=== PATIENT | female | born 1995 | race Caucasian/White ===

== ENCOUNTER 2018-02-25 08:12 | Outpatient (CLI) | payer MEDICAID ==
[2018-02-25 08:37] VITALS: BP 98/55
[2018-02-25 08:55] LABS: BILIRUBIN,URINE NEGATIVE (NEGATIVE); GLUCOSE, URINE (UA) NEGATIVE (NEGATIVE); KETONES,URINE (UA) NEGATIVE (NEGATIVE); LEUKOCYTE ESTERASE, URINE NEGATIVE (NEGATIVE); NITRITE,URINE NEGATIVE (NEGATIVE); OCCULT BLOOD,URINE NEGATIVE (NEGATIVE); PROTEIN,URINE NEGATIVE (NEGATIVE); UROBILINOGEN,URINE 0.2 (NORMAL) E.U./dL (NORMAL)
[2018-02-25 09:04] LABS: BACTERIA,URINE Few /HPF (None Seen); CLARITY,URINE HAZY (CLEAR); RBC,URINE None Seen /HPF (0-5); SQUAMOUS EPITHELIAL CELL,UR FEW Squamous (<= Few)
--- NOTE | 2018-02-25 11:05 | PROVIDER PROGRESS NOTE ---
Subjective - Prog Note Date Prog Note Date: 02/25/18 Prog Note Time: 11:00 - Subjective Subjective: Fernando is a 23-year-old 2 para 1001 woman who receives care at [facility]. We have no records to review but patient states her EDC is 29 June yielding a EDC of 22 weeks and 3 days. She drops in today reporting decreased movement. She reports no loss of fluid or contractions. She has no headaches visual changes or edema to report. She did have a prior loss at 20 weeks due to infection. She states the infection began as bacterial vaginosis and ascended to become chorion amnionitis. The chorio necessitated uterine evacuation with Cytotec. Currently patient has no fevers chills or abdominal pain. She does report a yellowish discharge and asked this to be evaluated. Objective - Vital Signs/Intake & Output Vital Signs: Vital Signs x48h Temp Pulse Resp BP Pulse Ox 02/25/18 08:36 98.2 F 93 16 98/55 L 100 - Lab Results Other Labs: Lab Results x24hrs 02/25/18 Range/Units 08:45 Urine Color YELLOW Urine Clarity HAZY (CLEAR) Urine pH 7.0 (5.0-7.5) PH Ur Specific [place] 1.015 (1.002-1.030) Urine Protein NEGATIVE (NEGATIVE) mg/dL Urine Glucose (UA) NEGATIVE (NEGATIVE) mg/dL Urine Ketones NEGATIVE (NEGATIVE) mg/dL Urine Occult Blood NEGATIVE (NEGATIVE) Urine Nitrite NEGATIVE (NEGATIVE) Urine Bilirubin NEGATIVE (NEGATIVE) Urine Urobilinogen 0.2 (NORMAL) (NORMAL) E.U./dL Ur Leukocyte Esterase NEGATIVE (NEGATIVE) Urine RBC None Seen (0-5) /HPF Urine WBC 0-3 (0-5) /HPF Ur Squamous Epith Cells FEW Squamous (<= Few) Urine Bacteria Few (None Seen) /HPF Urine Culture Comments NOT INDICATED History of Present Illness - History of Present Illness Allergies/Adverse Reactions: Allergies latex Allergy (Mild, Verified 02/25/18 08:35) Rash Physical Exam - Physical Exam General Appearance: WD/WN, no apparent distress Eyes, Ears, Nose, Throat Exam: PERRL/EOMI Gastrointestinal/Abdominal: Normal bowel sounds, Non tender, Soft Pelvic Exam: external exam normal, speculum exam normal, discharge, other ( Uterus appropriate size. Cervix is long patulous and posterior.) Skin Exam: normal color, warm/dry Assessment/Plan - Assessment/Plan Assessment: Patient reports re-reduced movement however tracing and handheld Doppler indicates a normal active fetus. Her discharge is yellow and non-foul with GC/chlamydia and affirm cultures pending.Cervical exam and ultrasound cervical length indicate low risk of delivery. Plan: Patient is moving to [facility] and wishes to transfer care. She is welcome to start care at the [facility] [place]. Await culture results.Patient is discharged home with warning sign and callback instructions.
--- NOTE | 2018-02-25 11:49 | Ultrasound Report ---
EXAM: LIMITED SECOND TRIMESTER OB EXAM DATE: 02/25/2018 11:17 AM. CLINICAL HISTORY: Decreased movement. COMPARISON: None. TECHNIQUE: Transabdominal ultrasound scanning with selected static images acquired. Examination tailo red for assessment of amniotic fluid volume and cervix length. FINDINGS: Single live intrauterine gestation. heart rate: 142 bpm. Presentation: Breech. Placenta: Posterior position with no previa. Amniotic fluid volume: Subjectively normal. ROSA 16.6 cm. Maximum vertical pocket 5.4 cm. anatomy: Anatomic survey not performed. No abnormalities noted. Cervix: Closed measuring 4.5 cm in length, measured transabdominally. Maternal structures: Otherwise unremarkable. IMPRESSION: 1. Single live IUP in breech presentation. 2. Cervix closed measuring 4.5 cm in length. Normal amniotic fluid volume with ROSA 16.6 cm. 3. Limited OB examination otherwise as above. DYLON Referring Provider Line: [phone] SITE ID: [id number]
== END 2018-02-25 11:20 | disposition home or self-care (01) ==
LOC: WFO 08:12 → FBP 08:16 → WFO 11:20
PROVIDERS: ATTEND Obstetrics & Gynecology
DX: O36.8120 Decreased fetal movements, second trimester, not applicable or unspecified (principal); Z3A.22 22 weeks gestation of pregnancy; O99.89 Other specified diseases and conditions complicating pregnancy, childbirth and the puerperium; N89.8 Other specified noninflammatory disorders of vagina
CPT/HCPCS: 76815; 81001; 87086; 87480; 87491; 87510; 87591; 87660; 99213

== ENCOUNTER 2018-03-20 07:28 | Emergency (ER) | payer MEDICAID ==
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
[2018-03-20 09:00] VITALS: BP 111/59
== END 2018-03-20 08:59 | disposition home or self-care (01) ==
LOC: ED 07:28
DX: O9A.212 Injury, poisoning and certain other consequences of external causes complicating pregnancy, second trimester (principal); S20.211A Contusion of right front wall of thorax, initial encounter; Z3A.26 26 weeks gestation of pregnancy; V43.52XA Car driver injured in collision with other type car in traffic accident, initial encounter
CPT/HCPCS: 81599; 83033; 85025; 86850; 86900; 86901; 96372; 99213; 99283

== ENCOUNTER 2018-03-20 08:40 | Outpatient (CLI) | payer MEDICAID, OTHER ==
[2018-03-20 09:19] VITALS: BP 94/50
[2018-03-20 09:38] LABS: BASOPHILS # (AUTO) 0.1 10^3/uL (0.0-0.1); BASOPHILS % (AUTO) 0.9 %; EOSINOPHILS # (AUTO) 0.2 10^3/uL (0.0-0.7); EOSINOPHILS % (AUTO) 1.5 %; HGB - HEMOGLOBIN 11.8 g/dL (12.0-16.0); MEAN CORPUSCULAR HEMOGLOBIN 31.9 pg (27.0-31.0); MEAN CORPUSCULAR HGB CONC 34.4 g/dL (32.0-36.0); MEAN CORPUSCULAR VOLUME 92.5 fL (81.0-99.0); MEAN PLATELET VOLUME 8.2 fL (7.9-10.8); MONOCYTES # (AUTO) 0.5 10^3/uL (0.0-1.0); MONOCYTES % (AUTO) 4.9 %; NEUTROPHILS # (AUTO) 8.4 10^3/uL (1.5-6.6); NEUTROPHILS % (AUTO) 74.7 %; PLT - PLATELET COUNT 219 10^3/uL (130-450); RED BLOOD COUNT 3.69 10^6/uL (4.20-5.40); RED CELL DISTRIBUTION WIDTH 13.3 % (12.0-15.0); WHITE BLOOD COUNT 11.2 x10^3/uL (4.8-10.8)
[2018-03-20] MEDS ORDERED: RHO(D) IMMUNE GLOBULIN 300 MCG SYRINGE IM ONE (11:25)
== END 2018-03-20 11:50 | disposition home or self-care (01) ==
LOC: WFO 08:40 → FBP 08:56 → WFO 11:50
PROVIDERS: ATTEND Obstetrics & Gynecology
DX: Z04.1 Encounter for examination and observation following transport accident (principal)
CPT/HCPCS: 81599; 83033; 85025; 86850; 86900; 86901; 96372; 99213

== ENCOUNTER 2018-04-01 11:55 | Outpatient (CLI) | payer OTHER, MEDICAID ==
[2018-04-01 12:34] LABS: BASOPHILS # (AUTO) 0.1 10^3/uL (0.0-0.1); BASOPHILS % (AUTO) 0.6 %; EOSINOPHILS # (AUTO) 0.1 10^3/uL (0.0-0.7); EOSINOPHILS % (AUTO) 1.1 %; LYMPHOCYTES % (AUTO) 19.3 %; MEAN CORPUSCULAR HEMOGLOBIN 32.1 pg (27.0-31.0); MEAN CORPUSCULAR HGB CONC 34.7 g/dL (32.0-36.0); MEAN CORPUSCULAR VOLUME 92.4 fL (81.0-99.0); MEAN PLATELET VOLUME 8.4 fL (7.9-10.8); MONOCYTES # (AUTO) 0.4 10^3/uL (0.0-1.0); MONOCYTES % (AUTO) 4.3 %; NEUTROPHILS # (AUTO) 7.7 10^3/uL (1.5-6.6); NEUTROPHILS % (AUTO) 74.7 %; PLT - PLATELET COUNT 224 10^3/uL (130-450); RED BLOOD COUNT 3.73 10^6/uL (4.20-5.40); RED CELL DISTRIBUTION WIDTH 13.5 % (12.0-15.0); WHITE BLOOD COUNT 10.3 x10^3/uL (4.8-10.8)
[2018-04-01 13:17] LABS: BILIRUBIN,URINE NEGATIVE (NEGATIVE); CLARITY,URINE CLEAR (CLEAR); GLUCOSE, URINE (UA) NEGATIVE (NEGATIVE); KETONES,URINE (UA) NEGATIVE (NEGATIVE); LEUKOCYTE ESTERASE, URINE NEGATIVE (NEGATIVE); NITRITE,URINE NEGATIVE (NEGATIVE); OCCULT BLOOD,URINE NEGATIVE (NEGATIVE); PH,URINE 6.5 PH (5.0-7.5); PROTEIN,URINE NEGATIVE (NEGATIVE); UROBILINOGEN,URINE 0.2 (NORMAL) E.U./dL (NORMAL)
[2018-04-01 13:26] LABS: BACTERIA,URINE Few /HPF (None Seen); MUCUS,URINE Few Strands; RBC,URINE 0-5 /HPF (0-5); SQUAMOUS EPITHELIAL CELL,UR MANY Squamous (<= Few)
[2018-04-02 11:11] LABS: HEPATITIS B SURFACE ANTIGEN NON-REACTIVE (NON-REACTIVE)
[2018-04-02 14:21] LABS: HIV AG/AB 4TH GEN NON-REACTIVE (NON-REACTIVE)
== END 2018-04-01 11:56 | disposition home or self-care (01) ==
LOC: LAB 11:55
PROVIDERS: ATTEND Obstetrics & Gynecology
DX: Z36.9 Encounter for antenatal screening, unspecified (principal); Z34.90 Encounter for supervision of normal pregnancy, unspecified, unspecified trimester
CPT/HCPCS: 36415; 81001; 81599; 82950; 85025; 86592; 86762; 86850; 86870; 86900; 86901; 87340; 87389

== ENCOUNTER 2018-04-18 19:09 | Outpatient (CLI) | payer MEDICAID ==
--- NOTE | 2018-04-19 10:23 | Ultrasound Report ---
Procedure Date: 04/18/2018 Accession Number: [id number] / [id number] Procedure: US - Retroperitoneal CPT Code: FULL RESULT: EXAM: Retroperitoneal DATE: 04/18/2018 9:20 PM CLINICAL HISTORY: ALLERGIC PURPURA COMPARISON: None. TECHNIQUE: Real-time scanning was performed with static images obtained. FINDINGS: A single image labeled fetus A is submitted with the retroperitoneal examination which partially visualizes what appears to be a chest demonstrating a heartbeat of 146 bpm. Right Kidney: 10.9 x 5.6 x 6.7 cm. Normal echotexture with no stones, contour-deforming masses, or hydronephrosis. Parenchymal flow is preserved by limited color Doppler. Left Kidney: 11.4 x 5.1 x 5.5 cm. Parenchymal flow is preserved by limited color Doppler. Normal echotexture with no stones, contour-deforming masses, or hydronephrosis.] Bladder: The right ureteral jet is identified, the left jet is not seen. The bladder measures 4 x 4 0.7 x 6.8 cm for a bladder volume of 68 mL. IMPRESSION: No hydronephrosis or renal calculi. RADIA
== END 2018-04-18 19:10 | disposition home or self-care (01) ==
LOC: DI 19:09
PROVIDERS: ATTEND Obstetrics & Gynecology
DX: D69.0 Allergic purpura (principal)
CPT/HCPCS: 76770

== ENCOUNTER 2018-04-23 08:00 | Outpatient (CLI) | payer MEDICAID | END 2018-04-23 08:01 | disposition home or self-care (01) | LOC: LAB.R 08:00 | PROVIDERS: ATTEND Obstetrics & Gynecology | DX: Z87.51 Personal history of pre-term labor (principal); Z11.3 Encounter for screening for infections with a predominantly sexual mode of transmission | CPT/HCPCS: 82731; 87491; 87591 ==

== ENCOUNTER 2018-06-10 08:00 | Outpatient (CLI) | payer MEDICAID, OTHER | END 2018-06-10 08:01 | LOC: LAB.R 08:00 | PROVIDERS: ATTEND Obstetrics & Gynecology | DX: Z36.9 Encounter for antenatal screening, unspecified (principal) | CPT/HCPCS: 87081 ==

== ENCOUNTER 2018-06-27 08:00 | Outpatient (CLI) | payer MEDICAID ==
[2018-06-28 15:24] LABS: MUDS CUTOFF CONCENTRATIONS CUTOFF CONC BELOW:
[2018-06-28 16:09] LABS: AMPHETAMINE SCREEN,URINE NEGATIVE (NEGATIVE); BENZODIAZEPINES SCREEN, URINE NEGATIVE (NEGATIVE); COCAINE SCREEN URINE NEGATIVE (NEGATIVE); METHADONE SCREEN, URINE NEGATIVE (NEGATIVE); METHAMPHETAMINES SCREEN, URINE NEGATIVE (NEGATIVE); OPIATE SCREEN, URINE NEGATIVE (NEGATIVE); OXYCODONE SCREEN, URINE NEGATIVE (NEGATIVE); TRICYCLIC ANTIDEPRESSANT,URINE NEGATIVE (NEGATIVE)
[2018-06-28 16:17] LABS: PROPOXYPHENE SCREEN, URINE NEGATIVE (NEGATIVE)
== END 2018-06-27 23:59 ==
LOC: LAB.R 08:00
PROVIDERS: ATTEND Obstetrics & Gynecology
DX: Z36.9 Encounter for antenatal screening, unspecified (principal)
CPT/HCPCS: 80306

== ENCOUNTER 2018-06-28 03:33 | Inpatient (IN) | payer MEDICAID ==
[2018-06-28] MEDS ORDERED: fentaNYL 100 MCG/2 ML VIAL IVP PRN (05:32)
[2018-06-28] MEDS ORDERED: OXYTOCIN/SODIUM CHLORIDE 250 ML IV ONE ×2 (05:32→14:10)
[2018-06-28] MEDS ORDERED: ONDANSETRON 4 MG/2 ML VIAL IVP PRN ×2 (05:32→07:57)
[2018-06-28] MEDS ORDERED: SODIUM CHLORIDE FLUSH 0.9% 10 ML SYRINGE IVP PRN (05:32)
[2018-06-28] MEDS ORDERED: LACTATED RINGERS 1,000 ML IV SCH ×2 (06:00→15:00)
[2018-06-28 06:17] LABS: BASOPHILS # (AUTO) 0.1 10^3/uL (0.0-0.1); BASOPHILS % (AUTO) 0.9 %; EOSINOPHILS # (AUTO) 0.1 10^3/uL (0.0-0.7); EOSINOPHILS % (AUTO) 0.6 %; HGB - HEMOGLOBIN 12.9 g/dL (12.0-16.0); LYMPHOCYTES # (AUTO) 2.2 10^3/uL (1.5-3.5); LYMPHOCYTES % (AUTO) 23.6 %; MEAN CORPUSCULAR HEMOGLOBIN 32.2 pg (27.0-31.0); MEAN CORPUSCULAR HGB CONC 35.6 g/dL (32.0-36.0); MEAN CORPUSCULAR VOLUME 90.4 fL (81.0-99.0); MEAN PLATELET VOLUME 8.8 fL (7.9-10.8); MONOCYTES # (AUTO) 0.6 10^3/uL (0.0-1.0); MONOCYTES % (AUTO) 6.7 %; NEUTROPHILS # (AUTO) 6.3 10^3/uL (1.5-6.6); NEUTROPHILS % (AUTO) 68.2 %; PLT - PLATELET COUNT 195 10^3/uL (130-450); RED BLOOD COUNT 4.02 10^6/uL (4.20-5.40); RED CELL DISTRIBUTION WIDTH 13.7 % (12.0-15.0); WHITE BLOOD COUNT 9.3 x10^3/uL (4.8-10.8)
[2018-06-28] MEDS ORDERED: ROPIVACAINE 0.2% PF 20 ML AMPULE ONE (07:25)
[2018-06-28] MEDS ORDERED: fent/BUPIV 2 MCG/0.125% 250 ML EP ONE (07:25)
--- NOTE | 2018-06-28 07:56 | ANESTHESIA ---
Pre-Anesthesia VS, & Labs - Diagnosis active labor - Procedure labor epidural Vital Signs: Temp Pulse Resp BP Pulse Ox 36.6 C 74 24 133/65 H 99 06/28/18 06:22 06/28/18 06:22 06/28/18 06:22 06/28/18 06:22 06/28/18 06:22 Height 5 ft 3 in Weight (kg) 101.151 kg Body Mass Index 31.1 - NPO Other (clears from now on) - Is Patient ?: Yes - Lab Results Current Lab Results: Laboratory Tests 06/28/18 06:02: WBC 9.3, RBC 4.02 L, Hgb 12.9, Hct 36.3 L, MCV 90.4, MCH 32.2 H, MCHC 35.6, RDW 13.7, Plt Count 195, MPV 8.8, Neut # (Auto) 6.3, Lymph # (Auto) 2.2, Casey # (Auto) 0.6, Eos # (Auto) 0.1, Baso # (Auto) 0.1, Absolute Nucleated RBC 0.01, Nucleated RBC % 0.1 Fish Bones: 06/28/18 06:02 Home Medications and Allergies Home Medications: Ambulatory Orders Medication Instructions Recorded Confirmed No Known Home Medications 03/20/18 03/20/18 Active Medications Fentanyl (Fentanyl) 100 mcg IVP Q1H PRN PRN Reason: PAIN Lactated Ringer's (Lr) 1,000 mls @ 150 mls/hr IV .Q6H40M NNEKA Last Infusion: 06/28/18 06:55 Dose: Infused Oxytocin/Sodium Chloride (Pitocin/Sodium Chloride) 250 mls @ 50 mls/hr IV ONCE ONE Stop: 06/28/18 10:31 Ondansetron HCl (Zofran Inj) 4 mg IVP Q6HR PRN PRN Reason: Nausea / Vomiting Sodium Chloride (Normal Saline Flush 0.9%) 10 ml IVP PRN PRN PRN Reason: NEEDED PER PROVIDER ORDERS Sodium Chloride (Normal Saline Flush 0.9%) 10 ml IVP 0100,0900,1700 [facility] No Known Home Medications 03/20/18 Allergies/Adverse Reactions: Allergies Allergy/AdvReac Type Severity Reaction Status Date / Time adhesive tape Allergy Mild Rash Verified 03/20/18 07:42 latex Allergy Mild Rash Verified 02/25/18 08:35 Anes History & Medical History - Anesthetic History Anesthesia Complications: reports: No previous complications - Medical History Cardiovascular: reports: None Pulmonary: reports: None Gastrointestinal: reports: None Urinary: reports: None Musculoskeletal: reports: None Endocrine/Autoimmune: reports: None, Other (obese) Blood Disorders: reports: None Smoking Status: Never smoker Exam General: Moderate distress Dental: WNL Mouth Openin Fingerbreadth Mallampati classification: III Thyromental Distance: 4-6 cm Mental/Cognitive Status: Alert/Oriented X3 Cognitive Status: Within normal limits Plan Anesthesia Type: Epidural Consent for Procedure(s) Verified and Reviewed: Yes Code Status: Attempt Resuscitation ASA classification: 2-Mild systemic disease Is this case an emergency?: No
[2018-06-28] MEDS ORDERED: NALBUPHINE 10 MG/ML AMP IVP PRN (07:57)
[2018-06-28] MEDS ORDERED: NALOXONE 0.4 MG/ML VIAL IVP PRN (07:57)
[2018-06-28] MEDS ORDERED: LACTATED RINGERS 500 ML IV ONE (07:57)
[2018-06-28] MEDS ORDERED: fent/BUPIV 2 MCG/0.125% 250 ML EP PRN (07:57)
[2018-06-28] MEDS ORDERED: METOCLOPRAMIDE 10 MG/2 ML VIAL IVP PRN (07:57)
[2018-06-28] MEDS ORDERED: ePHEDrine 50 MG/ML VIAL IVP PRN (07:57)
[2018-06-28] MEDS ORDERED: diphenhydrAMINE INJ 50 MG/ML VIAL IVP PRN (07:57)
[2018-06-28] MEDS ORDERED: SODIUM CHLORIDE FLUSH 0.9% 10 ML SYRINGE IVP SCH (09:00)
[2018-06-28] MEDS ORDERED: miSOPROStol 200 MCG TABLET ONE (09:21)
[2018-06-28] MEDS ORDERED: LIDOCAINE 1% 50 ML MDV ONE (09:21)
[2018-06-28] MEDS ORDERED: METHYLERGONOVINE 0.2 MG/ML AMP ONE (09:22)
[2018-06-28] MEDS ORDERED: LACTATED RINGERS 1,000 ML IV ONE (10:21)
[2018-06-28] MEDS ORDERED: diphenhydrAMINE 25 MG CAPSULE PO PRN (14:10)
[2018-06-28] MEDS ORDERED: WITCH HAZEL/GLYCERIN 1 EACH MED..PAD TOP PRN (14:10)
[2018-06-28] MEDS ORDERED: RHO(D) IMMUNE GLOBULIN 300 MCG SYRINGE IM ONE ×2 (14:10→16:23)
[2018-06-28] MEDS: IBUPROFEN 800 MG TABLET PO SCH ×2 (16:12→21:04)
[2018-06-28] MEDS: ACETAMINOPHEN 500 MG TABLET PO SCH (16:16)
--- NOTE | 2018-06-28 17:07 | DELIVERY NOTE ---
Delivery Note - Labor Labor: positive: Spontaneous, Augmented by oxytocin (Pt was started on pitocin while pushing to increase frequency of contractions) - Infant Delivery Method Delivery Method: positive: Spontaneous vaginal delivery - Presentation Presentation: positive: Vertex, ROP - right occiput posterior (Head spontaionously rotated to FACUNDO while ) - Nuchal Cord Nuchal Cord: positive: Present (one delivered thru) - Anesthetic Anesthetic Type: - Amniotic Fluid Description Amniotic Fluid Description: positive: Moderate meconium (Peds present at delivery) - Episiotomy Type Episiotomy Type: positive: None - Laceration Laceration: positive: None - Delivery Outcome Delivery Outcome: positive: Livebirth - David : positive: Placed in direct skin contact with mother, Bulb syringe, Stimulated, Warmed David sex: positive: Female - Cord Cord: positive: 3 vessels - Placenta Placenta: positive: Intact, Spontaneous - Estimated Blood Loss Estimated Blood Loss (in cc): 250 - Post Delivery Events Post Delivery Events: positive: No post delivery events - Delivery Comments (Free Text/Narrative) Delivery Comments (Free Text/Narrative): Pt had an Epidural placed for analgesia. Exam at 1204 relieved a large forbag which SROM with examination. moderate Mech was encountered. pt went to complete immediately. because of a hx of 15 min second stage Peds was summonsed and pushing was commenced with her arrival. The heasd was noted to be ROP attempts at manual rotation were unsuccessful. JPt pushed well and at 1355 the head spontaneously rotated to FACUNDO and delivered. A nucal chord was noted at delivery and delivered thru. baby was vigorous at delivery and was placed on the maternal abdomen. Placenta followed at 1401 inspected an dwas intact. minor abrasion in the clitoral and left posterior forcet noted but didn't need sutures. Baby weighed 8lb 6 oz. Apgars 7/9
[2018-06-28] MEDS: DOCUSATE SODIUM 100 MG CAPSULE PO SCH (21:04)
[2018-06-29] MEDS: IBUPROFEN 800 MG TABLET PO SCH ×3 (03:00→09:16)
[2018-06-29] MEDS: ACETAMINOPHEN 500 MG TABLET PO SCH (09:15)
[2018-06-29] MEDS: DOCUSATE SODIUM 100 MG CAPSULE PO SCH (09:15)
--- NOTE | 2018-06-29 09:44 | PROVIDER PROGRESS NOTE ---
Subjective - Prog Note Date Prog Note Date: 06/29/18 Prog Note Time: 09:42 - Subjective Pt reports feeling: Improved (Pt C/O back pain at Epidural site. breast milk comming in.) Subjective: THIS NOTE WAS OPENED AND CHARTED IN ERROR UNDER MY SIGN-IN DR JI HAS RECHARTED AND SIGNED IN HIS NAME THE SAME NOTE Objective - Vital Signs/Intake & Output Reviewed Vital Signs: Yes Vital Signs: Vital Signs x48h Temp Pulse Resp BP Pulse Ox 06/29/18 08:21 36.6 C 88 19 103/56 L 100 06/29/18 05:00 36.7 C 72 18 129/66 100 Intake & Output: Intake & Output 06/26/18 06/27/18 06/28/18 06/29/18 23:59 23:59 23:59 23:59 Intake Total 2000 Output Total 1900 Balance 100 - Objective General Appearance: positive: No acute distress, Alert Abdomen: positive: Non-tender, Mass (U-1) Back: negative: CVA tenderness (R), CVA tenderness (L) Extremities: positive: Joint swelling, Hung's sign/cords Neurologic/Psychiatric: positive: Oriented x3, Mood/affect nml - Lab Results Fish Bones: 06/28/18 06:02 Other Labs: Lab Results x24hrs 06/28/18 Range/Units 16:38 Blood Type O NEGATIVE Weak D (Du) WEAK-D NEGATIVE Maternal Bleed NEGATIVE (NEGATIVE) Assessment/Plan - Problem List (1) (spontaneous vaginal delivery) Impression: PPD #1 pain at epidural site doing well otherwise. Desires to go home. pt want to be placed on micronor. Breast feeding. Discharge meds motrin 800 mg colace 100 mg micronor start 2 weeks post THIS NOTE WAS OPENED AND CHARTED IN ERROR UNDER MY SIGN-IN DR JI HAS RECHARTED AND SIGNED IN HIS NAME THE SAME NOTE
--- NOTE | 2018-06-29 09:57 | PROVIDER PROGRESS NOTE ---
Subjective - Prog Note Date Prog Note Date: 06/29/18 Prog Note Time: 09:52 - Subjective Pt reports feeling: Improved (Pt C/O back pain at epidural site. Breast milk coming in) Objective - Vital Signs/Intake & Output Reviewed Vital Signs: Yes Vital Signs: Vital Signs x48h Temp Pulse Resp BP Pulse Ox 06/29/18 08:21 36.6 C 88 19 103/56 L 100 06/29/18 05:00 36.7 C 72 18 129/66 100 Intake & Output: Intake & Output 06/26/18 06/27/18 06/28/18 06/29/18 23:59 23:59 23:59 23:59 Intake Total 2000 Output Total 1900 Balance 100 - Objective General Appearance: positive: No acute distress, Alert Abdomen: positive: Non-tender, No organomegaly, Nml bowel sounds, No distention, Mass (U-1) Back: positive: Other (tendeer at the epidural site). negative: CVA tenderness (R), CVA tenderness (L) Skin: positive: Color nml, No rash, Warm, Dry Extremities: negative: Calf tenderness, Hung's sign/cords - Lab Results Fish Bones: 06/28/18 06:02 Other Labs: Lab Results x24hrs 06/28/18 Range/Units 16:38 Blood Type O NEGATIVE Weak D (Du) WEAK-D NEGATIVE Maternal Bleed NEGATIVE (NEGATIVE) Assessment/Plan - Problem List (1) (spontaneous vaginal delivery) Impression: Pt is doing well wants t go home. wants pills for contraception. mentioned mirena Discharge Meds Motrin 800 mg Colace 100 mg micronor RTC 2 and 6 weeks
--- NOTE | 2018-06-29 09:58 | Discharge Plan ---
Discharge Plan Disposition: 01 Home, Self Care Condition: Good Diet: Regular Activity Restrictions: Pelvic rest 6 weeks Shower Restrictions: No Driving Restrictions: No No Smoking: If you smoke, Please STOP! Call for help. Follow-up with: Woody Lin MD [Provider Admit Priv/Credential] -
[2018-06-29] MEDS ORDERED: RHO(D) IMMUNE GLOBULIN 300 MCG SYRINGE IM SCH ×2 (10:22→13:00)
[2018-06-29 12:03] VITALS: BP 130/68
--- NOTE | 2018-06-29 15:56 | Labor Flowsheet ---
Labor Flowsheet Datetime Report Generated by CPN: 06/29/2018 15:56 Datetime: 06/29/2018 11:56 VITAL SIGNS NBP Sys/Oxana/Mean (mmHg): 130 : 68 : 81 Pulse: 72 LaborFlag: Labor Datetime: 06/29/2018 08:04 SpO2 (%): 100 Datetime: 06/28/2018 13:50 UTERINE ACTIVITY Monitor Mode: External Frequency (min): q2-2 Quality: Strong Pattern: Normal: <= 5 Contractions in 10 Minutes Resting Tone (Palpate): Relaxed ASSESSMENT A Monitor Mode: External US FHR Baseline Changes: No Baseline Change Accelerations: 15X15 Decelerations: Variable Category: Category II STAGE 2 Pushing: Coached on Pushing Pushing Position: Pushing with Contractions; Pushing Left Side Pushing Progress: Descent with Pushing Datetime: 06/28/2018 13:47 Monitor Interventions for FHR: Ultrasound Adjusted Datetime: 06/28/2018 13:45 Contraction Comments: contractual strength has picked up since the pt aug. Pt pushing well. Desce nt noted with pushes. FHR Baseline Rate : 140 Variability: Moderate 6-25 bpm Oxygen Method: Room Air Datetime: 06/28/2018 13:25 MEDICATIONS Pitocin (milliunits): Started @ 2 Medication Comments: pit augmentation started Patient Position/Activity: Left Lateral I/O Interventions: Ice Chips Given COMMUNICATION Communication: Provider at Bedside Communication Comments: pit ordered by Dr Geim Datetime: 06/28/2018 13:00 Duration (sec): 60 Pain Presence: None/Denies Anesthesia Level Check: T10- Umbilicus Datetime: 06/28/2018 12:42 Provider Notified (Name): Misael Peds Datetime: 06/28/2018 12:29 Temperature (C): 36.8 ANESTHESIA Anesthesia Plans: Epidural Datetime: 06/28/2018 12:05 VAGINAL EXAM Dilatation (cm): 10.0 Station: 1 Exam by: dr giem Datetime: 06/28/2018 12:04 Membrane Status: Ruptured Membranes Rupture Method: Spontaneous Amniotic Fluid Color: Light Meconium Amniotic Fluid Amount: Moderate Membrane Comments: SROM with VE Datetime: 06/28/2018 11:30 PAIN Pain Scale: 0 Effacement (%): 100 Vaginal Bleeding: None Cervix, Consistency: Soft Cervix, Position: Anterior Lie 'A': Longitudinal Breath Sounds, Left: Clear and Equal Breath Sounds, Right: Clear and Equal Procedures: Sterile Vag Exam Datetime: 06/28/2018 10:30 Pain Coping: Sleeping PATIENT CARE IV/Blood Work: New IV Bag Hung Datetime: 06/28/2018 10:00 Respirations: 18 Headache: Denies Datetime: 06/28/2018 09:00 Plan of Care: Plan of Care Discussed Datetime: 06/28/2018 08:57 Vaginal Exam Comments: head engaged Datetime: 06/28/2018 08:44 Provider Reviewed Strip: Yes Strip Reviewed by: Dr Giem Notification Reason: Status Update Datetime: 06/28/2018 08:00 Pain Location: Abdomen Datetime: 06/28/2018 07:49 Pain Type: Cramping Datetime: 06/28/2018 07:29 Pain Relief Measures: Epidural Given MATERNAL ASSESSMENT Level of Consciousness: Fully Conscious DTR's/Clonus: DTRs 1+ RUQ Epigastric Pain: Denies TEACHING Instructional Method: Verbal Datetime: 06/28/2018 07:26 Epidural Procedure: Loading Dose Anesthesia Comments: 5ml Datetime: 06/28/2018 07:25 Stage of : Labor Pain Goal: 5 Datetime: 06/28/2018 07:02 Patient Care Comments: sitting up for epidural PROCEDURE TIME OUT Procedure Verify: Correct Patient Identity; Correct Side and Site are Marked; Accurate Procedure Co nsent Form; Agreement on Procedure to be Done; Correct Patient Position; Safety Precautions Based on Patient History or Medication Use Pain Management: Epidural Datetime: 06/28/2018 07:00 Monitor Interventions for UA: [place] Adjusted Epidural Positioning: Sitting Datetime: 06/28/2018 06:00 Unit Routine: [place] to Room; Call Mcclellan; Bed; Visiting Policy; Unit Personnel; Handwashing; M onitoring; Safety/Fall Risk Prevention; Diet/Nutrition Services; Bathroom Privileges; Medications (Annotations: Service dog protocol)
--- NOTE | 2018-07-03 15:31 | HISTORY & PHYSICAL EXAMINATION ---
Admit History - Instructions [place]/Slash: -Left hand click circles element as positive or present. -Right hand click slashes element as negative or not present. - Visit Reason Visit Reason: Bleeding - heavy - : 1 Parity: 0 Premature: 0 Ectopic: o Care: positive: [facility] Risk/History: positive: Other (placenta Previa. Pt is a known Placenta previa adn has been sent to [facility] in [facility]. She develpode large bright red vaginal bleeding this AM bleeding stopped.) Complications This : positive: Placenta previa Smoking Status: Former smoker Meds/Allgy - Home Medications Home Medications: Ambulatory Orders Medication Instructions Recorded Confirmed No Known Home Medications 03/20/18 03/20/18 - Allergies Allergies/Adverse Reactions: Allergies Allergy/AdvReac Type Severity Reaction Status Date / Time adhesive tape Allergy Mild Rash Verified 03/20/18 07:42 latex Allergy Mild Rash Verified 02/25/18 08:35 Physical - Abdominal Exam Vital Signs: Temp Pulse Resp BP Pulse Ox 36.5 C 70 16 130/68 100 06/29/18 12:02 06/29/18 12:02 06/29/18 12:02 06/29/18 12:02 06/29/18 12:02 Uterine Resting Tone: positive: Soft - Monitoring Heart Rate Baseline: 130-40 Strip Review: positive: Category II - Presentation Presentation: positive: Vertex - Speculum Exam Speculum Exam Performed: positive: No Plan for Labor - Plan For Labor I expect patient to be DC'd or transferred within 96 hours.: Yes Plan for Labor: two large bore IV's placed CBC Type and cross [address] Rapp to assume care
== END 2018-06-29 14:30 | disposition home or self-care (01) | DRG 774 ==
LOC: WFO 03:33 → FBP 03:34 → WFO 05:14 → FBP 05:15
PROVIDERS: ADMIT Obstetrics & Gynecology; ATTEND Obstetrics & Gynecology
PROC: 10E0XZZ Delivery of Products of Conception, External Approach (ICD-10-PCS; principal; 2018-06-28)
DX: O44.03 Complete placenta previa NOS or without hemorrhage, third trimester (principal); Z37.0 Single live birth; O77.0 Labor and delivery complicated by meconium in amniotic fluid; Z3A.40 40 weeks gestation of pregnancy; O69.81X0 Labor and delivery complicated by cord around neck, without compression, not applicable or unspecified
CPT/HCPCS: 36415; 83033; 85025; 86900; 86901; 99213

== ENCOUNTER 2018-12-09 08:00 | Outpatient (CLI) | payer MEDICAID | END 2018-12-09 23:59 | disposition home or self-care (01) | LOC: LAB.R 08:00 | PROVIDERS: ATTEND Registered Nurse | DX: Z30.430 Encounter for insertion of intrauterine contraceptive device (principal) | CPT/HCPCS: 87491; 87591 ==

== ENCOUNTER 2019-01-01 17:42 | Emergency (ER) | payer MEDICAID ==
--- NOTE | 2019-01-01 18:16 | ED Physician Documentation ---
History of Present Illness - Stated complaint Stated Complaint: FEMALE - Chief complaint Chief Complaint: General - History obtained from History obtained from: Patient - History of Present Illness Timing: How many weeks ago (3) Pain level max: 4 Pain level now: 3 - Additonal information Additional information: 23-year-old female presents to the emergency department approximately 3 weeks status post IUD placement. Since that time she has had pelvic pain and bleeding. Call the gynecology office today and was referred here for evaluation due to continued bleeding. She occasionally feels lightheaded when she stands up. Has not taken anything for the pain. Has never had an IUD before. Nothing makes it better or worse. The bleeding is currently spotting. Review of Systems Constitutional: denies: Fever, Chills Throat: denies: Sore throat Cardiac: denies: Chest pain / pressure Respiratory: denies: Dyspnea GI: denies: Vomiting, Diarrhea Skin: denies: Rash Musculoskeletal: denies: Neck pain, Back pain Neurologic: denies: Headache PD PAST MEDICAL HISTORY - Past Medical History Cardiovascular: None Respiratory: None Endocrine/Autoimmune: None, Other GI: None SUBEDITOR: None : None HEENT: None Psych: None Musculoskeletal: None - Past Surgical History Past Surgical History: No - Present Medications Home Medications: Ambulatory Orders Medication Instructions Recorded Confirmed Levonorgestrel [Mirena] 1 each IY 01/01/19 - Allergies Allergies/Adverse Reactions: Allergies Allergy/AdvReac Type Severity Reaction Status Date / Time adhesive tape Allergy Mild Rash Verified 03/20/18 07:42 latex Allergy Mild Rash Verified 02/25/18 08:35 - Social History Does the pt smoke?: No Smoking Status: Never smoker Does the pt drink ETOH?: No Does the pt have substance abuse?: No - Immunizations Immunizations are current?: Yes PD ED PE NORMAL - Vitals Vital signs reviewed: Yes - General General: Alert and oriented X 3, No acute distress, Well developed/nourished - HEENT HEENT: Moist mucous membranes - Neck Neck: Supple, no meningeal sign - Cardiac Cardiac: RRR - Respiratory Respiratory: No respiratory distress, Clear bilaterally - Abdomen Abdomen: Soft, Non tender, Non distended - Derm Derm: Warm and dry, No rash - Extremities Extremities: No edema - Neuro Neuro: Alert and oriented X 3 - Psych Psych: Normal mood, Normal affect Results - Vitals Vitals: Vital Signs - 24 hr 01/01/19 01/01/19 01/01/19 17:46 19:46 19:49 Temperature 36.7 C Heart Rate 86 64 Respiratory 20 16 Rate Blood Pressure 124/62 109/74 O2 Saturation 98 99 Oxygen O2 Source Room air - Labs Labs: Laboratory Tests 01/01/19 01/01/19 18:09 18:09 WBC 7.6 RBC 4.75 Hgb 14.4 Hct 41.5 MCV 87.3 MCH 30.3 MCHC 34.6 RDW 13.2 Plt Count 252 MPV 8.3 Neut # (Auto) 4.4 Lymph # (Auto) 2.6 [place]iscoe # (Auto) 0.3 Eos # (Auto) 0.1 Baso # (Auto) 0.1 Absolute Nucleated RBC 0.00 Nucleated RBC % 0.0 Sodium 139 Potassium 3.3 L Chloride 105 Carbon Dioxide 24 Anion Gap 10.0 BUN 12 Creatinine 0.6 Estimated GFR (MDRD) 125 Glucose 97 Calcium 9.1 Total Bilirubin 0.7 AST 18 ALT 13 Alkaline Phosphatase 55 Total Protein 6.8 Albumin 3.9 Globulin 2.9 Albumin/Globulin Ratio 1.3 Lipase 26 Serum HCG, Qual NEGATIVE - Rads (name of study) pelvic US Radiology: Prelim report reviewed, EMP read contemporaneously, See rad report (Normal pelvic ultrasound. Appropriately positioned intrauterine device. ) PD MEDICAL DECISION MAKING - ED course Complexity details: reviewed results, re-evaluated patient, considered differential, d/w patient ED course: 23-year-old female with what appears to be dysfunctional uterine bleeding secondary to new implantation of an intrauterine device. Ultrasound is normal and reveals IUD in normal position. No acute laboratory abnormalities. We will continue supportive care and follow-up with her doctor. Patient counseled regarding signs and symptoms for which I believe and urgent re-evaluation would be necessary. Patient with good understanding of and agreement to plan and is comfortable going home at this time This document was made in part using voice recognition software. While efforts are made to proofread this document, sound alike and grammatical errors may occur. Departure - Departure Disposition: 01 Home, Self Care Clinical Impression: IUD (intrauterine device) in place, Dysfunctional uterine bleeding Condition: Good Instructions: ED Bleed Irregular Vaginal Follow-Up: Edgar Mel[place], [place], [employer]ATOR [Provider Admit Priv/Credential] - Within 1 week Comments: Your IUD appears in place on ultrasound. Return if you worsen. Your laboratory testing is normal today. Discharge Date/Time: 01/01/19 19:51
[2019-01-01 18:19] LABS: BASOPHILS # (AUTO) 0.1 10^3/uL (0.0-0.1); BASOPHILS % (AUTO) 1.7 %; EOSINOPHILS # (AUTO) 0.1 10^3/uL (0.0-0.7); EOSINOPHILS % (AUTO) 1.6 %; HGB - HEMOGLOBIN 14.4 g/dL (12.0-16.0); LYMPHOCYTES # (AUTO) 2.6 10^3/uL (1.5-3.5); LYMPHOCYTES % (AUTO) 34.4 %; MEAN CORPUSCULAR HEMOGLOBIN 30.3 pg (27.0-31.0); MEAN CORPUSCULAR HGB CONC 34.6 g/dL (32.0-36.0); MEAN CORPUSCULAR VOLUME 87.3 fL (81.0-99.0); MEAN PLATELET VOLUME 8.3 fL (7.9-10.8); MONOCYTES # (AUTO) 0.3 10^3/uL (0.0-1.0); MONOCYTES % (AUTO) 4.5 %; NEUTROPHILS # (AUTO) 4.4 10^3/uL (1.5-6.6); NEUTROPHILS % (AUTO) 57.8 %; PLT - PLATELET COUNT 252 10^3/uL (130-450); RED BLOOD COUNT 4.75 10^6/uL (4.20-5.40); RED CELL DISTRIBUTION WIDTH 13.2 % (12.0-15.0); WHITE BLOOD COUNT 7.6 x10^3/uL (4.8-10.8)
[2019-01-01 18:37] LABS: ALBUMIN 3.9 g/dL (3.2-5.5); ALBUMIN/GLOBULIN RATIO 1.3 (1.0-2.2); ALKALINE PHOSPHATASE 55 IU/L (42-121); ALT ALANINE AMINOTRANSFERASE 13 IU/L (10-60); AST ASPARTATE AMINOTRANSFERASE 18 IU/L (10-42); BILIRUBIN,TOTAL 0.7 mg/dL (0.2-1.0); BUN - BLOOD UREA NITROGEN 12 mg/dL (6-20); CALCIUM 9.1 mg/dL (8.5-10.3); CARBON DIOXIDE - CO2 24 mmol/L (21-32); CHLORIDE 105 mmol/L (101-111); CREATININE 0.6 mg/dL (0.4-1.0); GFR - MDRD 125 (>89); GLUCOSE 97 mg/dL (70-100); LIPASE 26 U/L (22-51); SODIUM 139 mmol/L (135-145); TOTAL PROTEIN 6.8 g/dL (6.7-8.2)
--- NOTE | 2019-01-01 19:34 | Ultrasound Report ---
Reason: bleeding, pain s/p IUD insertion 3 weeks Procedure Date: 01/01/2019 Accession Number: [id number] / [id number] Procedure: US - Pelvic w/Transvaginal CPT Code: FULL RESULT: EXAM: PELVIC ULTRASOUND EXAM DATE: 01/01/2019 06:31 PM. CLINICAL HISTORY: Bleeding, pain s/p IUD insertion 3 weeks. COMPARISON: None. TECHNIQUE: Realtime transabdominal pelvic scan performed to identify the uterus and adnexa and as an overview of other pelvic structures, followed by transvaginal scan to provide greater detail of the uterus and adnexa, with static image documentation. FINDINGS: Uterus: 8.6 x 5.1 x 7.0 cm, volume 162 cc. Anteverted position. Normal overall size. Mildly heterogeneous.. Masses: None. Endometrium: 5 mm. Normal. Intrauterine device appears appropriately positioned. Cervix: Unremarkable. Right Ovary: 4.0 x 3.7 x 2.9 cm, volume 23 cc. Normal echotexture and color Doppler flow. Left Ovary: 3.9 x 2.9 x 2.5 cm, volume 15 cc. Normal echotexture and color Doppler flow. Free Fluid: None. Other: None. IMPRESSION: Normal pelvic ultrasound. Appropriately positioned intrauterine device. RADIA
[2019-01-01 19:37] LABS: HCG,QUALITATIVE BLOOD NEGATIVE
[2019-01-01 19:50] VITALS: BP 109/74
== END 2019-01-01 19:51 | disposition home or self-care (01) ==
LOC: ED 17:42
DX: N93.8 Other specified abnormal uterine and vaginal bleeding (principal); Z97.5 Presence of (intrauterine) contraceptive device
CPT/HCPCS: 36415; 76830; 76856; 80053; 83690; 84703; 85025; 99283

== ENCOUNTER 2019-01-25 06:43 | Emergency (ER) | payer MEDICAID ==
[2019-01-25] MEDS ORDERED: CHERRY SYRUP 10 ML UDC PO ONE (08:44)
[2019-01-25] MEDS ORDERED: DEXAMETHASONE 10 MG/ML VIAL PO STA (08:44)
--- NOTE | 2019-01-25 08:47 | ED Physician Documentation ---
PD HPI HEENT - Stated complaint Stated Complaint: SORE THROAT/BILAT EAR PX - Chief complaint Chief Complaint: General - History obtained from History obtained from: Patient - History of Present Illness Timing - onset: How many days ago (4) Timing - duration: Days (4) Timing - details: Gradual onset, Still present Location: Right ear, Left ear, Sinuses, Throat Improves: Medication Worsens: Swalllowing Associated symptoms: Congestion, Rhinorrhea, Headache, Cough Similar symptoms before: Diagnosis (bronchitis and otitis) Recently seen: Not recently seen - Additional information Additional information: 23-year-old female with a prior history of bronchitis and otitis has developed a cough congestion sore throat and ear pain. She had a fever with all of this. She does feel it is difficult for her to get a full deep breath. She has had similar infection previously and has not had to use an inhaler. She feels her breathing has changed. Review of Systems Constitutional: reports: Fever Eyes: denies: Decreased vision Ears: reports: Ear pain Nose: reports: Rhinorrhea / runny nose, Congestion Throat: reports: Sore throat Cardiac: denies: Chest pain / pressure, Palpitations Respiratory: reports: Dyspnea, Cough, Wheezing GI: denies: Abdominal Pain, Nausea, Vomiting : denies: Dysuria, Frequency PD PAST MEDICAL HISTORY - Past Medical History Cardiovascular: None Respiratory: None Endocrine/Autoimmune: None, Other GI: None BASKET MAKER: None : None HEENT: None Psych: None Musculoskeletal: None - Past Surgical History Past Surgical History: No - Present Medications Home Medications: Ambulatory Orders Medication Instructions Recorded Confirmed Levonorgestrel [Mirena] 1 each IY 01/01/19 RX: Azithromycin [Zithromax] 250 mg PO DAILY #6 tablet 01/25/19 - Allergies Allergies/Adverse Reactions: Allergies Allergy/AdvReac Type Severity Reaction Status Date / Time adhesive tape Allergy Mild Rash Verified 01/25/19 06:56 latex Allergy Mild Rash Verified 01/25/19 06:56 - Social History Does the pt smoke?: No Smoking Status: Never smoker Does the pt drink ETOH?: No Does the pt have substance abuse?: No - Immunizations Immunizations are current?: Yes PD ED PE NORMAL - Vitals Vital signs reviewed: Yes (normal ) - General General: Alert and oriented X 3, No acute distress - HEENT HEENT: Atraumatic, PERRL, EOMI, Other (both TM's are inflamed the right is worse with distortion of the landmarks. Pharynx is with mild inflamation ) - Neck Neck: Supple, no meningeal sign, No bony TTP - Cardiac Cardiac: RRR, No murmur - Respiratory Respiratory: No respiratory distress, Other (diminished breath sounds with scattered wheezes. ) - Abdomen Abdomen: Soft, Non tender - Back Back: No CVA TTP, No spinal TTP - Derm Derm: Normal color, Warm and dry, No rash - Extremities Extremities: No deformity, No edema - Neuro Neuro: Alert and oriented X 3, water chemist 2-12 intact, No motor deficit, No sensory deficit, Normal speech Eye Opening: Spontaneous Motor: Obeys Commands Verbal: Oriented GCS Score: 15 - Psych Psych: Normal mood, Normal affect Results - Vitals Vitals: Vital Signs - 24 hr 01/25/19 01/25/19 01/25/19 06:52 09:10 09:38 Temperature 36.5 C 36.3 C L Heart Rate 76 71 69 Respiratory 18 16 16 Rate Blood Pressure 113/62 120/69 O2 Saturation 97 100 Oxygen O2 Source Room air - Labs Labs: Laboratory Tests 01/25/19 07:37 Group A Strep Rapid Negative PD MEDICAL DECISION MAKING - ED course Complexity details: reviewed old records, reviewed results, re-evaluated patient, considered differential, d/w patient ED course: 23-year-old female with otitis and some shortness of breath does not have significant relief with the use of a DuoNeb treatment and we will not prescribe an inhaler. She is administered dexamethasone here in the emerge department we will treat her otitis. Departure - Departure Disposition: 01 Home, Self Care Clinical Impression: Otitis media Qualifiers: Otitis media type: suppurative Chronicity: acute Laterality: bilateral Recurrence: not specified as recurrent Spontaneous tympanic membrane rupture: without spontaneous rupture Qualified Code(s): H66.003 - Acute suppurative otitis media without spontaneous rupture of ear drum, bilateral Condition: Stable Instructions: ED Otitis Media Acute Adult Follow-Up: [facility] [Provider Group] Prescriptions: RX: Azithromycin [Zithromax] 250 mg PO DAILY #6 tablet Discharge Date/Time: 01/25/19 09:38
[2019-01-25] MEDS: IPRATROPIUM/ALBUTEROL 3 ML NEB INH STA ×2 (08:48→09:10)
[2019-01-25 09:39] VITALS: BP 120/69
== END 2019-01-25 09:38 | disposition home or self-care (01) ==
LOC: ED 06:43
DX: H66.003 Acute suppurative otitis media without spontaneous rupture of ear drum, bilateral (principal); Z86.69 Personal history of other diseases of the nervous system and sense organs; Z87.09 Personal history of other diseases of the respiratory system
CPT/HCPCS: 87070; 87430; 94640; 99283; A9270